=== PATIENT | male | born 1950 | race African-American/Black ===

== ENCOUNTER 2017-01-15 14:35 | Emergency (ER) | payer MEDICARE ==
[~2017-01-15] VITALS: Ht 172.7 cm; Wt 77.1 kg
--- NOTE | ~2017-01-15 | EKG ---
PATIENT: VALENTIN ZAVALA UNIT #: [id number] Ventricular Rate: 101 BPM Atrial Rate: 101 BPM P-R Interval: 162 ms QRS Duration: 102 ms Q-T Interval: 358 ms QTC Calculation(Bezet): 464 ms P [place]: 71 degrees Calculated R [place]: -15 degrees Calculated T [place]: 74 degrees Diagnosis Line: Sinus tachycardia with Premature atrial complexes Diagnosis Line: Possible Left atrial enlargement Diagnosis Line: Left ventricular hypertrophy Diagnosis Line: Cannot rule out Septal infarct , age undetermined Diagnosis Line: Abnormal ECG Diagnosis Line: No previous ECGs available Diagnosis Line: Confirmed by HANNA WARNER MD ([id number]) on Diagnosis Line: 01/16/2017 11:15:26 PM INTERPRETING MD: ALANA LOZA
[~2017-01-15 14:35] MED LIST: AZOR PO; DOXYCYCLINE PO; HUMULIN 70/30 V10 ML SUBQ; METFORMIN PO
[2017-01-15 17:22] LABS: BASOPHIL% 0.4 % (0-2.5); EOSINOPHIL% 0.3 % (0.0-7.0); HEMATOCRIT 28.2 % (38.0-50.0); HEMOGLOBIN 9.1 gm/dL (13.0-16.0); LYMPHOCYTE# 0.3 X10e3 (1.0-3.5); LYMPHOCYTE% 3.7 % (17.0-45.0); MEAN CELL VOLUME 88.6 FL (83-96); MEAN CORPUSCULAR HEMOGLOBIN 28.8 PG (28-34); MEAN CORPUSCULAR HGB CONC 32.5 g/dL (30-36); MONOCYTE# 0.7 X10e3 (0-1.0); MONOCYTE% 8.6 % (3.0-12.0); NEUTROPHIL# 7.2 X10e3 (1.5-7.1); PLATELET COUNT 132 X10e3 (140-420); RED BLOOD COUNT 3.18 X10e (3.90-5.60); RED CELL DISTRIBUTION WIDTH 16.1 % (11.0-15.5); WHITE BLOOD COUNT 8.3 X10e3 (4.0-10.5)
[2017-01-15 17:23] LABS: DIFF IND NO
[2017-01-15 17:45] LABS: CALCIUM SERUM 8.4 mg/dL (8.4-10.2); CREATININE SERUM 4.8 mg/dL (0.6-1.4); GLOM FILT RATE Estimated 13.8 mL/min (>60); POTASSIUM 4.2 mmol/L (3.5-5.1)
== END 2017-01-15 18:50 | disposition home or self-care (01) ==
LOC: CED 14:35
PROVIDERS: Emergency Medicine
DX: R55 Syncope and collapse (principal); E11.9 Type 2 diabetes mellitus without complications; I12.0 Hypertensive chronic kidney disease with stage 5 chronic kidney disease or end stage renal disease; N18.6 End stage renal disease; Z79.84 Long term (current) use of oral hypoglycemic drugs; Z79.899 Other long term (current) drug therapy
CPT/HCPCS: 36415; 80048; 82947; 85025; 93005; 99284